=== PATIENT | female | born 1970 | race Caucasian/White ===

== ENCOUNTER 2016-12-06 09:15 | Emergency (ER) | payer MEDICAID ==
[~2016-12-06] VITALS: Ht 149.9 cm; Wt 80.7 kg
[2016-12-06 09:20] VITALS: BP 145/87; PULSE 99; RESP 16; TEMP 98.9; O2SAT 98
--- NOTE | 2016-12-06 09:36 | PD ---
HPI Chief Complaint: Cold / Flu Symptoms Time Seen by Provider: 09:29 Travel History International Travel<30 days: No Contact w/Intl Traveler<30days: No Traveled to known affect area: No History of Present Illness HPI 45-year-old female here for evaluation of cough, nasal congestion, sore throat, and right shoulder pain. Upper respiratory symptoms started yesterday. Cough is nonproductive. She denies fevers or chills. No nausea, vomiting, diarrhea, abdominal pain. No chest pain. No hemoptysis. Patient reports history of right rotator cuff surgery about 5 years ago. For the last couple of months she has had a pain in her right shoulder. She denies trauma. PFS Past Medical History Hx Anticoagulant Therapy: No Anxiety: Yes Cardiovascular Problems: Yes (Murmur) Diminished Hearing: No Immunizations Current: Yes Tetanus Vaccination: < 5 Years Influenza Vaccination: No ?: Not LMP: 11/02/16, states normally irregular Tubal Ligation: Yes Past Surgical History Section: Yes Eye Surgery: Yes (In 1976) Gynecologic Surgery: Yes (Breast red.) Other Surgery: Yes (BREAST REDUCTION) Social History Alcohol Use: No Tobacco Use: No Substance Use: No Allergies-Medications (Allergen,Severity, Reaction): Coded Allergies: Iodine (Verified Allergy, Severe, Rash, "hard to breathe", 12/06/16) Penicillin (Verified Allergy, Severe, Rash, "hard to breathe", 12/06/16) Reported Meds & Prescriptions Reported Meds & Active Scripts Active No Active Prescriptions or Reported Medications Review of Systems Except as stated in HPI: all other systems reviewed are Neg Physical Exam Narrative GENERAL: Well-developed, well-nourished, comfortable, no acute distress. SKIN: Warm and dry. No rash. HEAD: Atraumatic. Normocephalic. EYES: Pupils equal and round. No scleral icterus. No injection or drainage. ENT: No nasal bleeding or discharge. Mucous membranes pink and moist. Pharynx is erythematous. No tonsillar exudates. Uvula is midline. Bilateral tympanic membranes and external auditory canals are normal. NECK: Trachea midline. No JVD. No nuchal rigidity. CARDIOVASCULAR: Regular rate and rhythm. No murmur appreciated. RESPIRATORY: No accessory muscle use. Clear to auscultation. Breath sounds equal bilaterally. GASTROINTESTINAL: Abdomen soft, non-tender, nondistended. MUSCULOSKELETAL: No obvious deformities. No clubbing. No cyanosis. No edema. Right shoulder with normal range of motion, without deformity, without warmth or erythema, mild tenderness. NEUROLOGICAL: Awake and alert. No obvious cranial nerve deficits. Motor grossly within normal limits. Normal speech. PSYCHIATRIC: Appropriate mood and affect; insight and judgment normal. Data Data Last Documented VS Vital Signs Date Time Temp Pulse Resp B/P Pulse Ox O2 Delivery O2 Flow Rate FiO2 12/06/16 09:25 14 98 Room Air 12/06/16 09:20 98.9 99 145/87 Orders Influenzae A/B Antigen (12/06/16 09:34) Group A Rapid Strep Screen (12/06/16 09:34) Strep Culture (Group A) (12/06/16 09:30) MDM Medical Decision Making Medical Screen Exam Complete: Yes Emergency Medical Condition: Yes Differential Diagnosis Viral illness, URI, influenza, strep pharyngitis, bronchitis, pneumonia Narrative Course Vital signs reviewed. Influenza is negative. Group A strep is negative. The patient is very well-appearing. She is likely suffering from a viral URI. She is stable for discharge home with outpatient follow-up with her primary care physician this week. She was informed on when to return to the emergency department. She verbalizes understanding and agreement with plan. Diagnosis Primary Impression: Upper respiratory infection Qualified Code: J06.9 - Upper respiratory tract infection, unspecified type Referrals: Primary Care Physician 3 days Additional Instructions: Follow-up with your primary care physician this week. Stay hydrated with plenty of fluids. Return to the emergency department for worsening symptoms or any other concerns. Scripts No Active Prescriptions or Reported Meds Disposition: 01 DISCHARGE HOME Condition: Stable Conor Desai MD Dec 06, 2016 09:36
== END 2016-12-06 10:25 | disposition home or self-care (01) ==
LOC: PHED 09:15
DX: J06.9 Acute upper respiratory infection, unspecified (principal)
CPT/HCPCS: 87081; 87804; 87880; 99283

== ENCOUNTER 2017-06-11 07:39 | Emergency (ER) | payer MEDICAID ==
[~2017-06-11] VITALS: Ht 149.9 cm; Wt 80.4 kg
[2017-06-11 07:42] VITALS: BP 164/74; PULSE 89; RESP 16; TEMP 97.7; O2SAT 98
[2017-06-11] MEDS ORDERED: FLUT1SPR5 EACH NARE (08:10)
--- NOTE | 2017-06-11 08:15 | PD ---
HPI Chief Complaint: Cold / Flu Symptoms Time Seen by Provider: 07:47 Travel History International Travel<30 days: No Contact w/Intl Traveler<30days: No Traveled to known affect area: No History of Present Illness HPI The patient was seen and examined in the presence of the nurse. She complains of nasal congestion and discomfort in her sinuses. No fever or shortness of breath. Symptoms severity is mild. PFSH Past Medical History Hx Anticoagulant Therapy: No Anxiety: Yes Cardiovascular Problems: Yes (Murmur) Diminished Hearing: No Immunizations Current: Yes Influenza Vaccination: No ?: Not LMP: 04/30/17, STATES IRREGULAR Tubal Ligation: Yes Past Surgical History Section: Yes Eye Surgery: Yes (In 1976) Gynecologic Surgery: Yes (Breast red.) Other Surgery: Yes (BREAST REDUCTION) Social History Alcohol Use: No Tobacco Use: No Substance Use: No Allergies-Medications (Allergen,Severity, Reaction): Coded Allergies: iodine (Unverified Allergy, Severe, Rash, "hard to breathe", 06/11/17) penicillin G (Unverified Allergy, Severe, Rash, "hard to breathe", 06/11/17 ) potassium iodide (Unverified Allergy, Severe, Rash, "hard to breathe", ) povidone-iodine (Unverified Allergy, Severe, Rash, "hard to breathe", 06/11) sodium iodide (Unverified Allergy, Severe, Rash, "hard to breathe", ) sodium iodide (Unverified Allergy, Severe, Rash, "hard to breathe", ) Reported Meds & Prescriptions Reported Meds & Active Scripts Active Flonase Nasal Rowdy (Fluticasone Nasal Rowdy) 50 Mcg/Act Rowdy 100 Mcg EACH NARE BID Review of Systems General / Constitutional: No: Fever Eyes: No: Visual changes HENT: Positive: Congestion, No: Headaches Cardiovascular: No: Chest Pain or Discomfort Respiratory: No: Shortness of Breath Gastrointestinal: No: Abdominal Pain Genitourinary: No: Dysuria Musculoskeletal: No: Pain Skin: No Rash Neurologic: No: Weakness Psychiatric: No: Depression Endocrine: No: Polydipsia Hematologic/Lymphatic: No: Easy Bruising Physical Exam Narrative RESPIRATORY: Respiratory effort unlabored, no retractions or use of accessory muscles. Breath sounds are clear and symmetric. SKIN: Focused skin assessment reveals no rash or ulcers. Skin is warm and dry. Palpation shows no induration or nodules. TMs and throat clear Data Data Last Documented VS Vital Signs Date Time Temp Pulse Resp B/P (MAP) Pulse Ox O2 Delivery O2 Flow Rate FiO2 06/11/17 07:47 18 98 Room Air 06/11/17 07:42 97.7 89 164/74 (104) MDM Medical Decision Making Medical Screen Exam Complete: Yes Emergency Medical Condition: Yes Medical Record Reviewed: Yes Differential Diagnosis Sinusitis, URI, rhinitis Narrative Course I have reviewed the patient's electronic medical record. Patient looks clinically well. No objective findings. She is worried about sinus congestion We discussed that acute sinusitis is almost always viral and not requiring antibiotics I did write her nasal steroid spray and suggested Claritin daily as a trial Diagnosis Primary Impression: Sinus congestion Additional Instructions: The patient was advised to follow up with their physician and return if they worsen. Consider daily Claritin for one week Med/Other Pt SpecificInfo: Prescription(s) given Scripts Fluticasone Nasal Rowdy (Flonase Nasal Rowdy) 50 Mcg/Act Rowdy 100 MCG EACH NARE BID for Allergies, #1 BOTTLE 0 Refills Prov: Crow Murillo MD 06/11/17 Disposition: 01 DISCHARGE HOME Condition: Stable Crow Murillo MD Jun 11, 2017 08:15
== END 2017-06-11 08:21 | disposition home or self-care (01) ==
LOC: PHED 07:39
DX: R09.89 Other specified symptoms and signs involving the circulatory and respiratory systems (principal); R09.81 Nasal congestion; Z86.59 Personal history of other mental and behavioral disorders; Z86.79 Personal history of other diseases of the circulatory system
CPT/HCPCS: 99283

== ENCOUNTER 2017-10-30 07:32 | Emergency (ER) | payer MEDICAID ==
[~2017-10-30] VITALS: Ht 149.9 cm; Wt 81.6 kg
[~2017-10-30 07:32] MED LIST: FLUT1SPR5 EACH NARE
[2017-10-30 07:40] VITALS: BP 164/80; PULSE 90; RESP 16; TEMP 97.9; O2SAT 97
--- NOTE | 2017-10-30 08:28 | PD ---
HPI Chief Complaint: Dizziness Time Seen by Provider: 08:14 Travel History International Travel<30 days: No Contact w/Intl Traveler<30days: No Traveled to known affect area: No History of Present Illness HPI Patient is a 46 year old female who comes in complaining of dizziness and high blood pressure. She says she was feeling dizzy yesterday and someone told her to check her blood pressure because it might be low. She says she noticed it was high and was worried. She says that getting up from sitting or laying down brings on the dizziness and it feels like the room is spinning around her. She had vertigo twice before and it feels similar. She also reports getting new progressive lenses 2 weeks ago and thinks she may be adjusting to these. She denies any chest pain, SOB, headache. She denies fever, chills, head injury. Severity is mild. PFSH Past Medical History Hx Anticoagulant Therapy: No Anxiety: Yes Cardiovascular Problems: Yes (Murmur) Diminished Hearing: No Immunizations Current: Yes Tetanus Vaccination: > 5 Years ?: Not LMP: 09/28/17 Tubal Ligation: Yes Past Surgical History Section: Yes Eye Surgery: Yes (In 1976) Gynecologic Surgery: Yes (Breast red.) Other Surgery: Yes (BREAST REDUCTION) Social History Alcohol Use: No Tobacco Use: No (NEVER) Substance Use: No Allergies-Medications (Allergen,Severity, Reaction): Coded Allergies: iodine (Unverified Allergy, Severe, Rash, "hard to breathe", 10/30/17) penicillin G (Unverified Allergy, Severe, Rash, "hard to breathe", 10/30/17 ) potassium iodide (Unverified Allergy, Severe, Rash, "hard to breathe", ) povidone-iodine (Unverified Allergy, Severe, Rash, "hard to breathe", 10/30) sodium iodide (Unverified Allergy, Severe, Rash, "hard to breathe", ) sodium iodide (Unverified Allergy, Severe, Rash, "hard to breathe", ) Reported Meds & Prescriptions Reported Meds & Active Scripts Active No Active Prescriptions or Reported Medications Review of Systems Except as stated in HPI: all other systems reviewed are Neg General / Constitutional: No: Fever, Chills Eyes: No: Blurred Vision HENT: Positive: Vertigo, No: Headaches Cardiovascular: No: Chest Pain or Discomfort Respiratory: No: Shortness of Breath Gastrointestinal: No: Nausea, Vomiting Genitourinary: No: Dysuria Musculoskeletal: No: Myalgias, Edema Neurologic: Positive: Dizziness, No: Weakness, Syncope Physical Exam Narrative GENERAL: Awake and alert, no acute distress. SKIN: Focused skin assessment warm/dry. No wounds or signs of infection. HEAD: Atraumatic. Normocephalic. EYES: Pupils equal and round and reactive. No scleral icterus. Extraocular movements intact, no nystagmus. ENT: Mucous membranes pink and moist. NECK: Trachea midline. No JVD. CARDIOVASCULAR: Regular rate and rhythm. No murmur appreciated. RESPIRATORY: No accessory muscle use. Clear to auscultation. Breath sounds equal bilaterally. MUSCULOSKELETAL: No obvious deformities. No clubbing. No cyanosis. No edema. NEUROLOGICAL: Awake and alert. No obvious cranial nerve deficits. Motor grossly within normal limits. Normal speech. Normal cerebellar function testing. PSYCHIATRIC: Appropriate mood and affect; insight and judgment normal. Data Data Last Documented VS Vital Signs Date Time Temp Pulse Resp B/P (MAP) Pulse Ox O2 Delivery O2 Flow Rate FiO2 10/30/17 08:35 16 97 Room Air 10/30/17 07:40 97.9 90 164/80 (108) Orders Orders Electrocardiogram (10/30/17 08:20) Complete Blood Count With Diff (10/30/17 08:20) Comprehensive Metabolic Panel (10/30/17 08:20) Troponin I (10/30/17 08:20) Ecg Monitoring (10/30/17 08:20) Iv Access Insert/Monitor (10/30/17 08:20) Oximetry (10/30/17 08:20) Meclizine (Antivert) (10/30/17 08:30) Sodium Chloride 0.9% Flush (Ns Flush) (10/30/17 08:30) Labs Laboratory Tests Test 10/30/17 08:35 White Blood Count 9.0 TH/MM3 Red Blood Count 4.86 MIL/MM3 Hemoglobin 13.2 GM/DL Hematocrit 39.6 % Mean Corpuscular Volume 81.5 FL Mean Corpuscular Hemoglobin 27.0 PG Mean Corpuscular Hemoglobin Concent 33.2 % Red Cell Distribution Width 12.4 % Platelet Count 285 TH/MM3 Mean Platelet Volume 7.5 FL Neutrophils (%) (Auto) 62.4 % Lymphocytes (%) (Auto) 30.6 % Monocytes (%) (Auto) 5.2 % Eosinophils (%) (Auto) 1.5 % Basophils (%) (Auto) 0.3 % Neutrophils # (Auto) 5.6 TH/MM3 Lymphocytes # (Auto) 2.8 TH/MM3 Monocytes # (Auto) 0.5 TH/MM3 Eosinophils # (Auto) 0.1 TH/MM3 Basophils # (Auto) 0.0 TH/MM3 CBC Comment DIFF FINAL Differential Comment Blood Urea Nitrogen 10 MG/DL Creatinine 0.64 MG/DL Random Glucose 122 MG/DL Total Protein 8.3 GM/DL Albumin 4.0 GM/DL Calcium Level 8.8 MG/DL Alkaline Phosphatase 90 U/L Aspartate Amino Transf (AST/SGOT) 45 U/L Alanine Aminotransferase (ALT/SGPT) 43 U/L Total Bilirubin 0.4 MG/DL Sodium Level 135 MEQ/L Potassium Level 4.3 MEQ/L Chloride Level 101 MEQ/L Carbon Dioxide Level 26.6 MEQ/L Anion Gap 7 MEQ/L Estimat Glomerular Filtration Rate 100 ML/MIN Troponin I LESS THAN 0.02 NG/ML MDM Medical Decision Making Medical Screen Exam Complete: Yes Emergency Medical Condition: Yes Medical Record Reviewed: Yes Interpretation(s) ECG shows normal sinus rhythm at a rate of 96, no ST elevation or depression, normal intervals. Differential Diagnosis Vertigo versus electrolyte abnormality versus hypertension Narrative Course Patient is a 46-year-old female who comes in complaining of dizziness and high blood pressure. Exam shows no neurologic abnormalities. She never experienced any chest pain. Patient offered meclizine, but says she is no longer feeling dizzy. IV established, labs sent. Labs show no acute abnormalities. Patient's repeat blood pressure is 140/87. She is advised to follow-up with a primary care doctor regarding her blood pressure. Advised to return anytime for any worsening symptoms. Patient is comfortable with discharge at this time. Diagnosis Primary Impression: Hypertension Qualified Codes: I10 - Essential (primary) hypertension Referrals: [facility] call for appointment Patient Instructions: General Instructions, Hypertension (ED) Additional Instructions: Follow-up with a primary care doctor. Return to the ED at anytime for any worsening symptoms. Scripts No Active Prescriptions or Reported Meds Disposition: 01 DISCHARGE HOME Condition: Stable Amy Morrell MD Oct 30, 2017 08:28
[2017-10-30] MEDS ORDERED: SODIUM CHLORIDE 0.9% FLUSH 10 ML FLUSH IVF PRN (08:30)
[2017-10-30] MEDS ORDERED: MECLIZINE HCL 25 MG TAB PO ONE (08:30)
[2017-10-30 08:35] VITALS: RESP 16; O2SAT 97
[2017-10-30 08:40] LABS: AUTOMATED NEUTROPHIL # 5.6 TH/MM3 (1.8-7.7); BASOPHIL % 0.3 % (0.0-2.0); EOSINOPHIL # 0.1 TH/MM3 (0-0.4); EOSINOPHIL % 1.5 % (0.0-4.0); HEMATOCRIT 39.6 % (35.0-46.0); HEMOGLOBIN 13.2 GM/DL (11.6-15.3); LYMPH % 30.6 % (9.0-44.0); LYMPHOCYTE # 2.8 TH/MM3 (1.0-4.8); MEAN CELL VOLUME 81.5 FL (80.0-100.0); MEAN CORPUSCULAR HGB CONC 33.2 % (32.0-36.0); MEAN PLATELET VOLUME 7.5 FL (7.0-11.0); MONO % 5.2 % (0.0-8.0); MONOCYTE # 0.5 TH/MM3 (0-0.9); NEUT % 62.4 % (16.0-70.0); PLATELET COUNT 285 TH/MM3 (150-450); RED BLOOD COUNT 4.86 MIL/MM3 (4.00-5.30); RED CELL DISTRIBUTION WIDTH 12.4 % (11.6-17.2)
[2017-10-30 08:45] VITALS: BP 149/83; PULSE 86; RESP 16; O2SAT 98
[2017-10-30 08:47] LABS: CHLORIDE 101 MEQ/L (98-107); SODIUM (NA) 135 MEQ/L (136-145)
[2017-10-30 08:50] LABS: CALCIUM 8.8 MG/DL (8.5-10.1)
[2017-10-30 08:51] LABS: BICARBONATE 26.6 MEQ/L (21.0-32.0); BLOOD UREA NITROGEN 10 MG/DL (7-18); GLUCOSE,RANDOM 122 MG/DL (74-106)
[2017-10-30 08:54] LABS: ALT (GPT) 43 U/L (10-53); AST (GOT) 45 U/L (15-37); CREATININE 0.64 MG/DL (0.50-1.00); GLOMERULAR FILTRATION RATE 100 ML/MIN (>89)
[2017-10-30 08:55] LABS: TOTAL BILIRUBIN ADULT 0.4 MG/DL (0.2-1.0)
[2017-10-30 08:56] LABS: TOTAL PROTEIN 8.3 GM/DL (6.4-8.2)
[2017-10-30 08:57] LABS: ALKALINE PHOSPHATASE 90 U/L (45-117)
[2017-10-30 08:59] LABS: TROPONIN I LESS THAN 0.02 NG/ML (0.02-0.05)
[2017-10-30 09:15] VITALS: BP 140/87; PULSE 86; RESP 16; O2SAT 99
--- NOTE | 2017-10-30 20:20 | EKG ---
Date Performed: 10/30/2017 Time Performed: 08:34:50 PTAGE: 46 years EKG: Sinus rhythm NORMAL ECG INTERPRETATION BASED ON A DEFAULT AGE OF 40 YEARS PREVIOUS TRACING : 11/19/2006 07.41 Since the prior tracing, there has been no significan t change DOCTOR: Pawel Rees Interpretating Date/Time 10/30/2017 20:19:06
== END 2017-10-30 09:36 | disposition home or self-care (01) ==
LOC: PHED 07:32
DX: I10 Essential (primary) hypertension (principal); R01.1 Cardiac murmur, unspecified; Z88.0 Allergy status to penicillin; Z88.8 Allergy status to other drugs, medicaments and biological substances
CPT/HCPCS: 80053; 84484; 85025; 93005